=== PATIENT | male | born 1935 | race Caucasian/White ===

== ENCOUNTER 2017-03-26 04:20 | Emergency (ER) | payer MEDICARE ==
--- NOTE | 2017-03-26 18:36 | ER ---
ADMIT: 03/26/2017 RM/LOC: ER [facility] MR#: [id number] [address] [id number] JON DAVIL[facility] [place] [address] Emergency Room Report SEX: M AGE: 82 : 1935 DATE: 03/26/2017 The patient is an 82-year-old hospice patient at [facility], took a tumble out of bed, injured his left hip, no loss of consciousness or other injuries was transported for evaluation at nursing request. Exam remarkable for nontoxic, afebrile male with no evidence of shortening or external rotation, left hip. No evidence of head or neck injury. Chest nontender to palpation as is abdomen. X-ray of left hip femur and pelvis negative. Discussed case with Dr. Rubi, who agrees with continuing hospice orders and returning. [facility] notified, Keena, the daughter, power of regulatory attorney and who also understands 's grave condition and terminal status. Tello Vuong MD/ gareth JOB #: [id number] CC: Tello Vuong MD, Attending Physician Cordell Ruib MD, Family Physician
== END 2017-03-26 05:55 | disposition home or self-care (01) ==
LOC: ER 04:20
DX: S79.912A Unspecified injury of left hip, initial encounter (principal); E11.9 Type 2 diabetes mellitus without complications; E78.5 Hyperlipidemia, unspecified; F41.9 Anxiety disorder, unspecified; F32.9 Major depressive disorder, single episode, unspecified; I13.0 Hypertensive heart and chronic kidney disease with heart failure and stage 1 through stage 4 chronic kidney disease, or unspecified chronic kidney disease; N18.9 Chronic kidney disease, unspecified; I50.9 Heart failure, unspecified; Z79.4 Long term (current) use of insulin; Z79.899 Other long term (current) drug therapy; W01.0XXA Fall on same level from slipping, tripping and stumbling without subsequent striking against object, initial encounter; Y92.129 Unspecified place in nursing home as the place of occurrence of the external cause